=== PATIENT | male | born 1950 | race Asian ===

== ENCOUNTER 2017-08-16 12:55 | Outpatient (CLI) | payer MEDICARE, OTHER, MEDICAID ==
--- NOTE | 2017-08-16 15:19 | PET ---
RADIONUCLIDE PET SCAN WITH CT ATTENUATION CORRECTION: HISTORY: Lung mass. Mediastinal adenopathy. Initial staging. FINDINGS: Physiologic uptake of radiotracer is present throughout the enteric system and along each urinary tra ct. Foci of abnormal radiotracer uptake are as follows: LOCATION MAX SUV QCLR Left upper lobe mass 8.5 Prevascular node 21.9 Left hilar node 11.2 Precarinal node 17.8 Right paratracheal node 13.2 Mild scattered joint uptake is consistent with degenerative changes. Nondiagnostic CT attenuation correction images show prominent calcification throughout the arterial s tructures. Diverticula arise from the colon without adjacent inflammation. IMPRESSION: 1. 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 2. Atherosclerosis. POS: [facility]
== END 2017-08-16 12:56 | disposition home or self-care (01) ==
LOC: CP 12:55
PROVIDERS: ATTEND Internal Medicine Critical Care Medicine
DX: R91.1 Solitary pulmonary nodule (principal); C34.12 Malignant neoplasm of upper lobe, left bronchus or lung; C78.1 Secondary malignant neoplasm of mediastinum; I70.90 Unspecified atherosclerosis
CPT/HCPCS: 78815; A9552

== ENCOUNTER 2017-08-29 09:28 | Outpatient (CLI) | payer MEDICARE, MEDICAID | END 2017-08-29 09:29 | disposition home or self-care (01) | LOC: CP 09:28 | PROVIDERS: ATTEND Internal Medicine Critical Care Medicine | DX: J44.9 Chronic obstructive pulmonary disease, unspecified (principal) | CPT/HCPCS: 94060; 94727; 94729 ==

== ENCOUNTER 2017-09-07 10:00 | Day surgery (SDC) | payer MEDICARE, MEDICAID ==
[2017-09-06 13:55] VITALS: BMI 21.1
[2017-09-07 10:22] LABS: PTT 30.7 SEC (22.9-36.1); Prothrombin Time 13.2 SEC (12.0-14.7)
[2017-09-07 11:08] VITALS: BP 156/42; TEMP 97.9
--- NOTE | 2017-09-07 12:54 | RAD ---
CHEST 2 VIEWS: HISTORY: Status post left lung biopsy. Small pneumothorax noted on post biopsy scan. FINDINGS: Upright inspiratory and expiratory chest radiographs demonstrate a left suprahilar and left upper lob e mass. Chronic changes of the lung parenchyma are noted. Pneumothorax is not appreciated. Atheros clerosis of the aorta is identified. IMPRESSION: 1. Masses as defined above. 2. No pneumothorax. POS: [facility]
--- NOTE | 2017-09-07 13:00 | CT ---
CT GUIDED BIOPSY: HISTORY: Left lung mass. Mediastinal and hilar lymphadenopathy. COMPARISON: 07/11/17. FINDINGS: Technically successful CT-guided biopsy of a left lung mass. A total of two 20-gauge core biopsy bipin ples were obtained. Postprocedure images demonstrate a small left-sided pneumothorax. Chronic emphy sematous change in the lung parenchyma, left hilar, prevascular, and right paratracheal lymphadenopat hy is noted. Extensive atherosclerosis of the aorta. Coronary artery calcifications are identified. TECHNIQUE: Consent was obtained to perform a CT-guided biopsy of a left upper lobe mass. The patient was placed in a supine position on the CT gantry. The patient was scanned and a left upper lobe mass was ident ified. The skin was prepped and draped in a sterile fashion. 1% Lidocaine, buffered with sodium bic arbonate, was used for local anesthesia. Under CT guidance, a 19-gauge metallic trocar was advanced into the left upper lobe lesion. Through this trocar, a total of two 20-gauge core biopsy samples we re performed. Lesional tissue is present. The patient tolerated the procedure well. There is a sma ll postprocedure pneumothorax. No significant postprocedure complication. Postprocedure upright inspiratory and expiratory chest radiographs were ordered immediately following the procedure and in 1 hour. IMPRESSION: Successful CT-guided biopsy of a left upper lobe mass. Pathologist reports that lesional tissue is p resent. Final pathologic diagnosis is pending. POS: [facility]
--- NOTE | 2017-09-07 13:39 | RAD ---
TWO VIEWS OF THE CHEST: COMPARISON: 09/07/17 at 12:[address] chest 09/07/17. HISTORY: Left lung mass biopsy. FINDINGS: Inspiratory and expiratory views of the chest show a normal-size cardiomediastinal silhouette. A mas s projects over the left upper lobe. No pneumothorax is seen on either inspiratory or expiratory vie w. No pleural effusion is seen. IMPRESSION: 1. No evidence of pneumothorax. 2. Left upper lobe lung mass. POS: [facility]
--- NOTE | 2017-09-07 14:42 | RAD ---
2 VIEWS CHEST: Date: 09/07/17 HISTORY: Status post left lung biopsy. Evaluate for pneumothorax. COMPARISON: 09/07/17 at 1309 hours. FINDINGS: Upright inspiratory and expiratory chest radiograph demonstrates chronic changes. Stable masses. No p neumothorax. IMPRESSION: No pneumothorax. POS: [facility]
== END 2017-09-07 14:50 | disposition home or self-care (01) ==
LOC: CT 10:00
PROVIDERS: ATTEND Internal Medicine Critical Care Medicine
PROC: 0B9G3ZX Drainage of Left Upper Lung Lobe, Percutaneous Approach, Diagnostic (ICD-10-PCS; principal; 2017-09-07)
DX: C34.12 Malignant neoplasm of upper lobe, left bronchus or lung (principal); R59.0 Localized enlarged lymph nodes; Z79.899 Other long term (current) drug therapy
CPT/HCPCS: 32405; 36415; 71045; 77012; 85610; 85730; 88305; 88333; 88334; 88341; 88342; 99152; 99153